=== PATIENT | female | born 1945 | race Caucasian/White ===

== ENCOUNTER → 2019-10-03 11:18 | Outpatient (CLI) | payer BC, SELFPAY ==
--- NOTE | ~2019-10-03 | MM_ITS ---
EXAMINATION: MM screening [facility] HISTORY: Screening mammogram TECHNIQUE: Craniocaudal and mediolateral oblique 3-D tomosynthesis images were obtained and synthetic 2-D images were generated. CAD analysis was submitted and interpreted. COMPARISON: Comparison to multiple prior studies sequentially, with oldest reviewed study dated 05/04. BREAST PARENCHYMAL COMPOSITION: There are scattered areas of fibroglandular density. FINDINGS: Left breast asymmetries are stable. There is no evidence of suspicious mass, calcification, or architectural distortion to suggest malignancy in either breast. There has been no suspicious int erval change. IMPRESSION: 1. No mammographic evidence of malignancy. 2. Recommend routine screening mammography in one year. BI-RADS CATEGORY 2 - BENIGN FINDINGS Reviewed, dictated and finalized at location A. DE SALES COORDINATOR
== END ==
PROVIDERS: PCP Physician Assistant; Visit Provider Advanced Practice Midwife
DX: Z12.31 Encounter for screening mammogram for malignant neoplasm of breast (principal)
CPT/HCPCS: 77063; 77067

== ENCOUNTER → 2019-10-18 11:10 | Outpatient (CLI) | payer BC, SELFPAY ==
--- NOTE | ~2019-10-18 | DEXA_ITS ---
Bone Density Report Name: Yessy Franco Age: 74 Sex: Female Ethnicity: White Date of : 1945 Indication: postmenopausal; screening for osteoporosis; hysterectomy; Referring Provider: SELENE, CAIT Study: Bone densitometry was performed. Exam Date: October 18, 2019 Accession number: [id number] Bone Density: Region BMD T-score Z-score Classification AP Spine (L1, L2, L3) 0.807 -1.9 0.4 Osteopenia Femoral Neck (Left) 0.550 -2.7 -0.6 Osteoporosis Total Hip (Left) 0.751 -1.6 0.2 Osteopenia Femoral Neck (Right) 0.543 -2.8 -0.7 Osteoporosis Total Hip (Right) 0.779 -1.3 0.4 Osteopenia Total Hip Mean 0.765 -1.5 0.3 Osteopenia World Health Organization criteria for BMD impression classify patients as: Normal (T-score at or above -1.0), Osteopenia (T-score between -1.0 and -2.5), or Osteoporosis (T-score at or below -2.5). 10-year Fracture Risk: FRAX not reported because: Some T-score for Spine Total or Hip Total or Femoral Neck at or below -2.5 Clinical Information Provided by Patient: Has used the following medications: Vitamin D Has the following medical conditions: Hysterectomy Patient maximum height was 62.0 Menopause Age: 51 Does not regularly consume dairy products Drinks caffeinated beverages Onset of menses at age 13 Number of children 0 Impression: The patient has osteoporosis, based on the Right Femoral Neck T-score. Discussion: INCREASED RISK OF FRACTURE. BONE DENSITY IS UNDESIRABLY LOW AT ONE OR MORE SKELETAL SITES, CONSISTENT WITH POSTMENOPAUSAL OSTEOPOROSIS. This patient's lowest T-score meets the World Health Organization's (WHO) criteria for osteoporosis at one or more sites (T-score -2.5 or below). In untreated patients, the risk of osteoporotic fracture increases approximately two-fold for each 1.0 SD decrease in T-score. Low bone density is not the only risk factor for fracture; also consider factors such as patient's age, frailty or poor health, risk of falling, risk of injury, previous osteoporotic fracture, family history of osteoporosis, cigarette smoking, low body weight, etc. Not everyone with low bone mineral density has osteoporosis; osteomalacia and other metabolic bone disorders should also be considered. Patients who have osteoporosis should be evaluated for specific diseases and conditions (secondary causes) that may cause or contribute to bone loss. The [place] Association of Clinical Endocrinologists (AACE) and National Osteoporosis Foundation (NOF) recommend pharmacologic intervention for all postmenopausal women whose T-score is in this range. The patient should follow a healthful lifestyle (good nutrition with adequate calcium and vitamin D, and appropriate weight-bearing exercise). Follow-Up: Consider a repeat BMD and Vertebral Fracture Assessment (VFA) exam in
== END ==
PROVIDERS: PCP Physician Assistant; Visit Provider Physician Assistant
DX: Z78.0 Asymptomatic menopausal state (principal); M85.88 Other specified disorders of bone density and structure, other site; M81.0 Age-related osteoporosis without current pathological fracture; M85.852 Other specified disorders of bone density and structure, left thigh; M85.851 Other specified disorders of bone density and structure, right thigh
CPT/HCPCS: 77080

== ENCOUNTER → 2021-01-25 11:33 | Outpatient (CLI) | payer BC, SELFPAY ==
--- NOTE | ~2021-01-25 | MM_ITS ---
EXAMINATION: MM screening [facility] w raul HISTORY: Screening mammogram TECHNIQUE: Craniocaudal and mediolateral oblique 3-D tomosynthesis images were obtained and synthetic 2-D images were generated. CAD analysis was submitted and interpreted. COMPARISON: 10/03/2019, 08/27/2018, 06/30/2017 BREAST PARENCHYMAL COMPOSITION: The breasts are heterogeneously dense, which may obscure small masses . FINDINGS: A chronic and unchanged asymmetry is noted in the upper left breast on the mediolateral obl ique view. There is no evidence of suspicious mass, calcification, or architectural distortion to sug gest malignancy in either breast. There has been no suspicious interval change. IMPRESSION: 1. No mammographic evidence of malignancy. 2. Recommend routine screening mammography in one year. BI-RADS Category 2: Benign finding(s). Reviewed, dictated and finalized at location A.
== END ==
PROVIDERS: PCP Physician Assistant; Visit Provider Physician Assistant
DX: Z12.31 Encounter for screening mammogram for malignant neoplasm of breast (principal)
CPT/HCPCS: 77063; 77067

== ENCOUNTER 2024-12-15 16:28 | Emergency (ER) | payer BC, SELFPAY ==
--- NOTE | ~2024-12-15 | CT_ITS ---
History: Fall PROCEDURE: CT cervical spine and facial bones without intravenous contrast. COMPARISON: None TECHNIQUE: Multiple contiguous axial images of the cervical spine and facial bones were performed without the ad ministration of intravenous contrast. DLP: 185 mGy-cm FINDINGS: Significant degenerative disease is identified with osteophyte formation, disc space narrowing, endpl ate changes and facet arthropathy. No acute fractures are present. Biapical scarring. Left frontal scalp hematoma The airway is patent. Impression: Left frontal scalp hematoma. No acute fracture within the cervical spine or facial bones. Reviewed, dictated and finalized at location A. Impression: Left frontal scalp hematoma. No acute fracture within the cervical spine or facial bones.
--- NOTE | ~2024-12-15 | XR_ITS ---
HISTORY: fall COMPARISON: None TECHNIQUE: 3 views of the right knee were performed FINDINGS: No acute or subacute fracture. Medial and lateral tibiofemoral joint space narrowing is identified. No suprapatellar joint effusion is identified. The infrapatellar joint space is clear. IMPRESSION: Degenerative disease, without acute fracture. Reviewed, dictated and finalized at location A.
--- NOTE | ~2024-12-15 | CT_ITS ---
History: Fall PROCEDURE: CT head without contrast. COMPARISON: None TECHNIQUE: Axial imaging of the head performed from the skull base to the vertex without IV contrast. Sagittal a nd coronal reformations obtained. DLP: 605 mGy-cm FINDINGS: The ventricles are enlarged. The dilatation of the ventricles is proportional to the degree of sulcal prominence, not uncommon in the senescent brain. Incidental notation is made of cavum septum pellucidum. Decreased attenuation is identified within the periventricular white matter, likely secondary to micr ovascular ischemic disease, in a patient of this age. There is no mass, mass effect or midline shift. There is no abnormal extra-axial fluid collection or intracranial hemorrhage. Visualized paranasal sinuses are clear. The mastoid air cells are well aerated. Left frontal scalp hematoma of increased attenuation. No acute displaced fractures within the overlying cranium. Impression: Left frontal scalp hematoma, without acute intracranial hemorrhage or suspicious mass effect. Reviewed, dictated and finalized at location A. Impression: Left frontal scalp hematoma, without acute intracranial hemorrhage or suspiciou s mass effect.
--- OUTSIDE RECORDS SUMMARY | 2024-12-15 16:30 | XMS_ITS | Clinical Summary ---
Author Organization [facility] Address [address] [place] [address] Care Team Providers Care Visual Design Lead Name Role Phone Unavailable Primary Care Provider Unavailabl e Source Comments [facility],non-owned Affiliates and Associated Physician Practices is amultiple site organization consisting of ambulatory clinics and hospital sitesin [place], [place], [place] and [place]. This disclosure is being madepursuant to the Care Everywhere program and may not contain all information available regarding this patient. Last updated 18.[facility] Allergies No known active allergies Medications * Be aware that medications may not be up to date on this document. Alwaysverify current medications with the patient. LISINOPRIL PO Take 12.5 mg by mouth Active fluticasone propionate (FLONASE) 50 MCG/ACT nasal spray [place] 2 sprays into each nostril once daily 48 g 4 10/04/2019 Active Social History Tobacco Use Types Packs/Day Years Used Date Smoking Tobacco: Never Smokeless Tobacco: Never Comments No Sex and Gender Information Value Date Recorded Sex Assigned at Not on file Legal Sex Female 5:48 AM [employer] Gender Identity Not on file Sexual Orientation Not on file Last Filed Vital Signs Vital Sign Reading Time Taken Comments Blood Pressure 124/80 10/04/2019 9:42 AM [employer] Pulse 72 10/04/2019 9:42 AM [employer] Temperature 36.7 C (98.1 F) 10/04/2019 9:42 AM [employer] Respiratory Rate 18 10/04/2019 9:42 AM [employer] Oxygen Saturation 98% 10/04/2019 9:42 AM [employer] Inhaled Oxygen Concentration - - Weight 51.7 kg (114 lb) 10/04/2019 9:42 AM [employer] Height 154.9 cm (5' 1 ) 10/04/2019 9:42 AM [employer] Body Mass Index 21.54 10/04/2019 9:42 AM [employer]ESSEL Plan of Treatment Health Maintenance Due Date Last Done Comments BONE DENSITY TESTING 1945 DTAP/TDAP/TD VACCINES (1 - Tdap) 1964 PNEUMOCOCCAL VACCINE 50+ (1 of 1 - PCV) 1995 ZOSTER VACCINE (1 of 2) 1995 Respiratory Syncytial Virus (RSV) Vaccine Pt: or over 60 yrs (1 - 1-dose 75+ series) 2020 COVID-19 VACCINE (1 - 2023-2 5 season) 2024 DEPRESSION SCREENING 08/10/2024 INFLUENZA VACCINE (Season Ended) 2025 HEPATITIS B VACCINE Aged Out No longe r eligible based on patient's age to complete this topic HIB VACCINE Aged Out No longer eligi ble based on patient's age to complete this topic HPV VACCINE Aged Out No longer eligi ble based on patient's age to complete this topic MENINGOCOCCAL (Group B) VACC INE SHARED DECISION-MAKING Aged Out No longer eligibl e based on patient's age to complete this topic MENINGOCOCCAL GROUPS A/C/Y/W VACCINE Aged Out No longer eligible b ased on patient's age to complete [place] [address] FAVIOLA
--- OUTSIDE RECORDS SUMMARY | 2024-12-15 16:30 | XMS_ITS | Data Portability ---
Author Organization [facility], Main Office Address [address] [place] [address] Care Team Providers Care Prepared Foods Supervisor Name Role Phone JOSE LEWIS Primary Care Provider JOSE LEWIS Referring Provider Assessment Encounter Date Assessment Date Assessment LastModified by Organization Details LastModified Time 03/16/2023 03/16/2023 Patient presents finger for rain left. She fractured the proximal part of the distal phalanx of the left 5th finger. This is deteriorating become somewhat arthritic already and she is prominent there. She can move it finger is stable neurologically she is intact. Based on this and the timing I think there is really not much else to do. If he gets very painful so we could consider fusing it however for the present time it is tolerable and recommend leaving it alone. See her back on an as-needed basis discussed. [email or web address] Not available 03/16/2023 11:27:41 03/24/2023 03/24/2023 Patient has ankl e pain left. She does have some degenerative changes noted on her x-ray. The pain is not bad today and she can tolerate it. I told her it is probably best just to live with it the way it is. I have given her prednisone for prescription drug management, for pain and inflammation. For will try some therapy as well I will see her back in a month discussed. [email or web address] Not available 03/24/2023 14:30:36 04/20/2023 04/20/2023 Patient returns ankle pain left. The ankle pain is resolving with therapy and she is seeming the headed in the right direction. She is having issues with walking and her balance. I think continuation of therapy would be helpful for I will see her back in 6 weeks and see how she is progressing. She can use her ankle as tolerated if it is sore she can take some Advil or Aleve. [email or web address] Not available 04/20/2023 10:21:21 06/01/2023 06/01/2023 Patient has mostly resolved left ankle pain I have advised her to continue with her physical therapy exercises as previously instructed by the therapist. She will continue with these for strengthening range of motion and pain control we will see her back as needed she can start getting back into normal activities if she wants to try a ballroom dancing with her they can start off slow see how she does if they have any further problems difficulties or questions they instructed to call I will see her back as needed she voiced understanding agrees above plan. [email or web address] Not available 06/01/2023 10:20:29 Plan of Treatment Reminders Order Date Submit Date Provider Last Modified By Organization Details Last Modified Time Details Appointments None recorded. Lab None recorded. Referral physical therapist referral - continue 2022 023 ATHENAX [facility] [place] [facility], [address], [place], [address], 10:25:26 physical therapist referral - patient to schedule 2022 023 [email or web address] [facility] [place] [facility], [address], [place], [address], 15:34:24 Procedures None recorded. Surgeries None recorded. Imaging XR, ankle 2022 023 [email or web address] [facility] [place], [address], [place], [address], 3 15:34:24 XR, hand 2022 023 [email or web address] [facility] [place], [address], [place], [address], 3 12:13:45 Medication Orders prednisone 10 mg tablets in a dose pack 2022 023 [email or web address] [id number], [address], [place], [place], [phone], 3 14:17:08 Patient TargetsNo targets recorded. Patient InstructionsNo instructions recorded. Reason for Referral Physical Therapist Referral for Pain of left ankle joint patient to schedule Referring Physician: Cody Ho, Orthopedic Surgery, Encounter Date: 03/24/2023 Physical Therapist Referral for Pain of left ankle joint continue ambulation and balance Referring Physician: Cody Ho, Orthopedic Surgery, Encounter Date: 04/20/2023 Results Created Date Observation Date Name Description Value Unit Range Abnormal Flag Note LastModifiedBy Organization Detail LastModifiedTime 07/22/20 22 XR, hip + pelvi s, unila teral No observ ation record ed. [id number] [facility] [place] [address], [place], [address], 10/09/2022 01:48:47 03/16/20 23 XR, hand No observ ation record ed. [email or web address] [facility] [place] [address], [place], [address], 03/16/2023 11:28:03 03/24/20 23 XR, ankle No observ ation record ed. [facility] [place] [address], [place], [address], 03/24/2023 14:31:04 Result Notes None recorded. 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 Procedures Surgical History Date Name Laterality Status Provider Name and Address Organization Details Recorded Time Hysterectomy completed Not Available [facility] 10/09/2022 01:47:34 Imaging Results Imaging Date Name Status LastModified by Organiz ation Details LastModified Time 07/22/2022 XR, hip + pelvis, unilateral completed [id number] [facility] [place] [address] [facility], [place], [address], 10/09/2022 01:48:47 03/16/2023 XR, hand completed [email or web address] [facility] [place] [address], [address], 03/16/2023 11:28:03 03/24/2023 XR, ankle completed [email or web address] [facility] [place] [address], [address], 03/24/2023 14:31:04 Procedure Notes None recorded. Medical Equipment None Reported. Medications Name Sig Start Date Stop Date Status Note LastModified by Organization Details LastModified Time amoxicillin 500 mg capsule TAKE 1 CAPSULE BY MOUTH EVERY 8 HOURS UNTIL ALL TAKEN active Not Available Not Available No t Available atorvastatin 20 mg tablet TAKE 1 TABLET BY MOUTH EVERY EVENING active Not Available Not Available No t Available donepezil 5 mg tablet active Not Available Not Available No t Available triazolam 0.25 mg tablet TAKE 1 TABLET BY MOUTH AT BEDTIME THE NIGHT BEFORE DENTAL PROCEDURE. TAKE 1 TABLET BY MOUTH 1 HOUR PRIOR TO DENTAL APPOINTMENT active Not Available Not Available Not Available azithromycin 250 mg tablet TAKE 2 TABLETS BY MOUTH FOR 1 DAY THEN TAKE 1 TABLET BY MOUTH DAILY FOR 4 DAYS active Not Available Not Available N ot Available acetaminophe n 300 mg-codeine 30 mg tablet TAKE 1 TABLET BY MOUTH EVERY 3 TO 4 HOURS NEEDED FOR PAIN active Not Available Not Available No t Available aspirin 81 mg tablet,delay ed release TAKE 1 TABLET BY MOUTH ONCE A DAY active Not Available Not Available No t Available prednisone 10 mg tablets in a dose pack Take 1 tab by mouth, 3 times a day for 3 daysTake 1 tab by mouth 2 times a day for 2 daysTake 1 tab by mouth once a day for 1 day 2022 active Not Available Not Available Not Avai lable diclofenac sodium 75 mg tablet,delay ed release Take 1 tablet twice a day by oral route. active Not Available Not Available No t Available montelukast 10 mg tablet active Not Available Not Available Not Available metoprolol succinate ER 25 mg tablet,exten ded release 24 hr TAKE 1 TABLET BY MOUTH EVERY DAY active Not Available Not Available No t Available azelastine 137 mcg (0.1 %) nasal spray USE 1 SPRAY IN EACH NOSTRIL TWICE DAILY DIRECTED active Not Available Not Available Not Available fluticasone propionate 50 mcg/actuatio n nasal spray,suspen rodger SHAKE LIQUID AND USE 2 SPRAYS IN EACH NOSTRIL DAILY active Not Available Not Available No t Available olmesartan 40 mg-hydrochlo rothiazide 12.5 mg tablet TAKE 1 TABLET BY MOUTH DAILY active Not Available Not Available Not Available duloxetine 60 mg capsule,kb yed release active Not Available Not Available Not Available rivastigmine 4.6 mg/24 hour transdermal patch APPLY 1 PATCH TOPICALLY TO THE SKIN DAILY active Not Available Not Available No t Available Paxlovid 300 mg (150 mg x 2)-100 mg tablets in a dose pack TK 2 NIRMATRELVI R TS AND 1 RITONAVIR T TOGETHER PO BID FOR 5 DAYS BID FOR 5 DAYS active Not Available Not Available N ot Available Vitals Date Recorded Body mass index (BMI) Body height Body weight Provider Name and Address Organization Details Last Updated DateTime 07/22/2022 17.4 kg/m2 180.34 cm 09464.05 g Not Available [facility] 10/09/2022 01:47:43 Date Recorded Body height Body mass index (BMI) Body weight Provider Name and Address Organization Details Last Updated DateTime 03/16/2023 154.94 cm 27.4 kg/m2 63393.89 g Cecy Brooks [facility] [employer] [facility] 03/16/2023 09:22:16 Date Recorded Body height Body mass index (BMI) Body weight Provider Name and Address Organization Details Last Updated DateTime 03/24/2023 154.94 cm 26.5 kg/m2 36351.93 g [facility] [employer] [facility] 03/24/2023 13:54:19 Date Recorded Body height Body mass index (BMI) Body weight Provider Name and Address Organization Details Last Updated DateTime 04/20/2023 154.94 cm 27 kg/m2 37883.71 g Sandie Arteaga, [facility] [employer] [facility] 04/20/2023 10:11:51 Date Recorded Body height Body mass index (BMI) Body weight Provider Name and Address Organization Details Last Updated DateTime 06/01/2023 154.94 cm 27.4 kg/m2 12327.89 g Esther Appiah [facility] [employer] [facility] 06/01/2023 10:03:09 Social History Question Answer Notes LastModified by Organizat ion Details LastModified Time Tobacco Smoking Status Never Smoker Not Available [facility] 10/09/2022 01:47:15 What Is Your Level Of Alcohol Consumption? Occasional [id number] Information not available 10/09/2022 Sex: Unknown Functional Status None recorded. Mental Status None recorded. Family History Relationship Description Onset Age of this Age Resolved Age Notes LastModified by Organization Details LastModified Time Mother Heart disease [id number] Not available 10/09/2022 01:47:35 Brother Heart disease [id number] Not available 10/09/2022 01:47:35 Father Alzheimer's disease [id number] Not available 10/09/2022 01:47:35 Medical History Condition Response USE OF BLOOD THINNERS Y HYPERTENSION Y Gynecological HistoryNo gynecological history recorded. Obstetrics History GPAL:G 0 P 0 0 0 0 Past Encounters Encounter ID Performer Location Encounter Start Date Encounter Closed Date Diagnosis/Indication Diagnosis SNOMED-CT Code Diagnosis ICD10 Code Diagnosis Note [id number] Cody Ho MD [facility] [place] [address] [place] [address] 07/22/2022 00:00:00 07/22/2022 15:01:37 [id number] Cody Ho MD [facility] [place] 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 [place] [address] 03/24/2023 13:51:43 03/24/2023 15:34:23 Pain of left ankle joint 1249203341 8611032 M25.000 [id number] Cody Ho MD [facility] [place] [address] [place] [address] 04/20/2023 10:09:18 04/20/2023 10:22:39 Pain of left ankle joint 7802604316 3532585 M25.911 [id number] Harshal Chirinos MD [facility] [place] [address] [place] [address] 06/01/2023 10:00:13 06/01/2023 10:42:20 Pain of left ankle joint 6187550527 9622182 M25.572 Health Concerns Section Related Observation LastModified by Organization Detai ls LastModified Time None Recorded Concern Status LastModified by Organization Details LastModified Time None Recorded Advance Directives Directive None Recorded Payers Encounter Date Sequence Insurance Name Policy Number Policy Sotelo Covered Member ID Sotelo Member ID Guarantor Name 03/16/2023 1 [employer] 104 Yessy Franco [id number] Yessy Franco 03/24/2023 1 [place] 104 Yessy Franco [id number] Yessy Franco 04/20/2023 1 [place] 104 Yessy Franco [id number] Yessy Franco 06/01/2023 1 [facility] FED[employer] [facility] PROGRAM (PPO) 104 Yessy Franco [id number] Yessy Franco Notes Date Note Type Note Provider Name and Address Organization Details Recorded Time 03/16/2023 text/html Patient presents finger pain left 5th. Apparently she damaged her fingers 6-8 weeks ago and notes swelling and pain she has been complaining about more over the last several weeks. The deformities at the D IP joint. Cody Ho MD [address], [place], [address], [employer] 03/16/2023 11:29:10 03/24/2023 text/html Patient returns ankle pain left. She has pain left ankle it is intermittent. It is not bad today she has excellent motion and strength she does have some mild pain at the extremes. Cody Ho MD [address], [place], [address], [facility] 03/24/2023 14:32:04 04/20/2023 text/html Patient returns ankle pain left. She has been in therapy and is slowly but surely improving. The pain is to a point where it is reasonably tolerable she is more active with her ankle at this point. Unfortunately she continues to have problems with balance and walking. Cody Ho MD [address], [place], [address], [facility] 04/20/2023 10:21:34 06/01/2023 text/html Patient returns for recheck of her left ankle. She was having some pain particularly if she is overdoing it she and her have been doing some ballroom dancing and this was aggravating her ankle somewhat. She states she has remote history of ankle injury but nothing recently. Previous x-rays do show some moderate degenerative change and what appears to be resulting hypertrophic changes due to high ankle sprain with bridging hypertrophic bone across the tibia to the fibula interosseous membrane region distally. In any event most of her pain was localized to the ankle joint itself she was treated with oral anti-inflammatory medication and a course of physical therapy. Therapy seems to be helping quite a bit she states her pain is now about a 1 on a scale 1-10 she has pretty good motion a little stiffness compared to the opposite side chronic in nature but otherwise doing well comes in today for recheck and talk about further treatment options from here. KG Kim [address] [facility], [facility] [address], [place], [address], [facility] 06/01/2023 10:20:53 OBGyn Episode No OBEpisode recorded.
--- OUTSIDE RECORDS SUMMARY | 2024-12-15 16:30 | XMS_ITS | CONTINUITY OF CARE DOCUMENT ---
Author Name caitie blood Address Unknown Organization [facility] Address [address] [place] [address] Phone [phone] Care Team Providers Care Top Case Assembler Name Role Phone Marcelino HORTA, Naina Unavailable JOSE LEWIS MD Unavailable [phone] JOSE LEWIS MD Unavailable PROBLEMS Condition Status Date Provider Notes Aortic regurgitation, moderate active Charlotte Benson MD Mitral regurgitation, mild active Naina schaefer MD HTN essential--echo ef 70%, mod AI, mild MR, 05/2021 active Naina Benson MD Abnormal EKG--stress test no rmal, calcium score 241, 05/2021 active Naina Benson MD Chest pain active Ike Guzmán PACs active Naina Benson MD PSVT active Naina Benson MD Alzheimer's dementia active Naina Benson MD Sleep apnea, not using cpap active Ike macias ENCOUNTERS Date Type Provider Location Encounter Diag nosis - In-person encounter Office Visit Naina Benson MD [facility] Sleep apnea, not using cpap - In-person encounter Office Visit Naina Benson MD [facility] Alzheimer's dementia - In-person encounter Office Visit Naina Benson MD [facility] PACsPSVT - In-person encounter Office Visit Naina Benson MD [facility] Chest pain - In-person encounter Office Visit Naina Benson MD [facility] - In-person encounter Office Visit Nania Benson MD [facility] HTN essential--echo ef 70%, mod AI, mild MR, bnormal EKG--stress test normal, calcium score 241, 05/2021 - In-person encounter Office Visit Naina Benson MD [facility] Chest pain - In-person encounter Office Visit Naina Benson MD [facility] - In-person encounter Office Visit Naina Benson MD [facility] Aortic regurgitation, moderateMitral regurgitation, mildHTN essential--echo ef 70%, mod AI, mild MR, bnormal EKG--stress test normal, calcium score 241, 05/2021 VITAL SIGNS Date Observation Value Provider Body Mass Index (Ratio) 26.88 kg/m2 Osvaldo Benson MD pulse rate 89 /min Chelseachucho Llamas blood pressure, cuff size regular Scooby reneeолег Llamas blood pressure, diastolic 64 mm[Hg] Scooby reneeолег Llamas blood pressure, systolic 104 mm[Hg] [facility] oxygen saturation, oximetry 94 % [place]o Llamas weight E&M 147 [lb_av] Chelsea Llamas respiratory rate E&M 12 /min [place] Llamas height E&M 62 [in_i] Chelsea Llamas Body Mass Index (Ratio) 26.15 kg/m2 Osvaldo Benson MD blood pressure, diastolic 77 mm[Hg] Li nkLogic blood pressure, systolic 138 mm[Hg] Radha kLogic blood pressure, cuff size regular Ja rret blood pressure, diastolic 77 mm[Hg] Ja rret blood pressure, systolic 138 mm[Hg] Jar ret pulse rate 70 /min Amado y respiratory rate E&M 12 /min Amado oxygen saturation, oximetry 95 % weight E&M 143 [lb_av] Amado y height E&M 62 [in_i] Amado y Body Mass Index (Ratio) 21.40 kg/m2 Osvaldo Benson MD blood pressure, diastolic 90 mm[Hg] Liliam tejeda [place] blood pressure, systolic 160 mm[Hg] Sriram augustine [place] oxygen saturation, oximetry 98 % Flaca Childs respiratory rate E&M 16 /min Yoanna morocho [place] pulse rate 77 /min Flaca lawrence weight E&M 117 [lb_av] Flaca lawrence height E&M 62 [in_i] Flaca lawrence Body Mass Index (Ratio) 21.21 kg/m2 Osvaldo Benson MD blood pressure, diastolic 90 mm[Hg] Li nkLogic blood pressure, systolic 150 mm[Hg] Radha kLogic blood pressure, diastolic 90 mm[Hg] Ri az Olemedzai blood pressure, systolic 150 mm[Hg] Nidia z Ahmedzai respiratory rate E&M 17 /min Tegan Si ms oxygen saturation, oximetry 97 % Tegan Sheridan pulse rate 66 /min Tegan Sheridan weight E&M 116 [lb_av] Tegan Sheridan blood pressure, cuff size regular Sa ra Sheridan height E&M 62 [in_i] Tegan Sheridan Body Mass Index (Ratio) 21.58 kg/m2 Osvaldo Benson MD blood pressure, cuff size small Liliam tejeda [place] blood pressure, diastolic 80 mm[Hg] Mi nkihil [place] blood pressure, systolic 150 mm[Hg] Sriram augustine [place] oxygen saturation, oximetry 98 % Flaca [place] respiratory rate E&M 16 /min Yoanna morocho [place] pulse rate 84 /min Flaca Rolando lawrence weight E&M 118 [lb_av] Flaca Rolando d height E&M 62 [in_i] Flaca Rolando d Body Mass Index (Ratio) 20.67 kg/m2 Osvaldo Benson MD blood pressure, diastolic 80 mm[Hg] Li nkLogic blood pressure, systolic 170 mm[Hg] Radha kLogic blood pressure, diastolic 80 mm[Hg] Darnell Childers blood pressure, systolic 170 mm[Hg] Portia Muiramirah Childers oxygen saturation, oximetry 98 % Newton Childers respiratory rate E&M 16 /min JanayLizy Childers pulse rate 77 /min Newton Rangel cb weight E&M 113 [lb_av] Newton Multani [facility] height E&M 62 [in_i] Newton Multani [facility] Body Mass Index (Ratio) 20.12 kg/m2 Osvaldo Benson MD blood pressure, diastolic 99 mm[Hg] To nsha Junior blood pressure, systolic 180 mm[Hg] Ton kia Junior oxygen saturation, oximetry 98 % Tonsha Junior respiratory rate E&M 16 /min Tonsha Junior pulse rate 82 /min Tonsha Junior weight E&M 110 [lb_av] [facility] blood pressure, resting Yes [facility]issa [facility] height E&M 62 [in_i] [facility] Body Mass Index (Ratio) 21.21 kg/m2 Osvaldo Benson MD blood pressure, cuff size regular Cy lucy Leone blood pressure, diastolic 70 mm[Hg] Jesús Leone blood pressure, systolic 130 mm[Hg] Gayathri Leone pulse rate 65 /min Yvette damon oxygen saturation, oximetry 97 % Yvette Leone respiratory rate E&M 16 /min Yvette Leone height E&M 62 [in_i] Yvette Sanchez l weight E&M 116 [lb_av] Yvette Sanchez l ALLERGIES No Known Drug Allergies HISTORY OF MEDICATION USE Medication Status Instructions Dates Provider Indications Com ments amlodipine 5 mg tablet active Chelsea Llamas metoprolol succinate 25 mg tablet extended release 24 hr active TAKE 1 TABLET BY MOUTH EVERY DAY 4 Yaima Melendez metoprolol succinate 25 mg tablet extended release 24 hr completed Take 1 tablet by mouth once a day 2 - 4 Amado atorvastatin 20 mg tablet active Take 1 tablet by mouth every evening 9 Ike Guzmán aspirin 81 mg tablet,delayed release (DR/EC) active Take 1 tablet by mouth once a day 9 Ike Guzmán olmesartan-hydro chlorothiazide 20-12.5 mg tablet completed Take 1 tablet by mouth once a day 2 - 2 Naina Benson MD duloxetine 60 mg capsule,delayed release(DR/EC) active Newton Childers fluticasone propionate 50 mcg/actuation spray,suspension active Newton Childers montelukast 10 mg tablet completed - 2 Newton Childers lisinopril-hydro chlorothiazide 20-12.5 mg tablet completed Take 1 tablet by mouth once a day 0 - 2 Yvette Leone SOCIAL HISTORY Date Observation Value Provider smoking status Never smoker Ike Guzmán social history reviewed E&M revi ewed - no changes required Naina Benson MD social history E&M S moking History: Joseph carvajal has never smoked. Ike Guzmán smoking status Never smoker Flaca Tay and social history reviewed E&M revi ewed - no changes required Naina Benson MD social history reviewed E&M revi ewed - no changes required Ike Guzmán social history reviewed E&M revi ewed - no changes required Naina Benson MD smoking status Never smoker Flaca Tay and social history reviewed E&M revi ewed - no changes required Ike Guzmán social history E&M S moking History: Joseph carvajal has never smoked. Naina Benson MD social history reviewed E&M revi ewed - no changes required Naina Benson MD smoking status Never smoker Newton Roe thornton social history E&M S moking History: Joseph carvajal has never smoked. Natan Vizcaino social history reviewed E&M revi ewed - no changes required Natan Vizcaino smoking status Never smoker Sara Junior number of grandchildren Naina Benson MD T jeff Benson MD social history E&M S moking History: Jospeh carvajal has never smoked. Naina Benson MD social history reviewed E&M revi ewed - no changes required Naina Benson MD smoking status Never smoker Yvette shipley FAMILY HISTORY Family Member Condition Full Brother Family History of CV A or Stroke: Father Family History of CV A or Stroke: Mother Family History of Co ronary Artery Disease: Mother Family History of CV A or Stroke: INSURANCE PROVIDERS Payer name Policy type / Coverage type [place] red green party ID BLUE SHIELD OF [place] Blue Shield [id number] ADVANCE DIRECTIVES Name Date DISCUSSED - NO DECISION MADE TREATMENT PLAN Date Name Performer [id number],S, Naina Benson MD [id number],S, Naina Benson MD [id number],B, Naina Benson MD [id number],S, Naina Benson MD [id number],S, Naina Benson MD [id number],S, Ike Ahmedza i [id number],S, Ike Ahmedza i [id number],S, Ike Ahmedza i [id number],B, Ike Ahmedza i [id number],B, Ike Ahmedza i [id number],S, Ike Ahmedza i [id number],S, Ike Ahmedza i [id number],S, Ike Ahmedza i [id number],S, Ike Ahmedza i [id number],B, Ike Ahmedza i [id number],S, Ike Ahmedza i [id number],S, Ike Ahmedza i [id number],S, Ike Ahmedza i [id number],S, Ike Ahmedza i [id number],S, Ike Ahmedza i [id number],S, Ike Ahmedza i [id number],S, Ike norma german [id number],S, [facility]ons[facility]at [id number],S, Naina Benson MD [id number],S, Naina Benson MD [id number],S, Naina Benson MD [id number],W, Naina Benson MD [id number],W, Naina Benson MD Cardiology Ikereji Guzmán Cardiology: H er updated medication list for this problem includes: Amlodipine 5 Mg Tablet (Amlodipine) Metoprolol Succinate 25 Mg Tablet Extended Release 24 Hr (Metoprolol succinate) ..... Take 1 tablet by mouth every day Aspirin 81 Mg Tablet,delayed Release (dr/ec) (Aspirin) ..... Take 1 tablet by mouth once a day Ike lluvia [facility]iology [facility] Ike norma [facility] Cardiology: H er updated medication list for this problem includes: Amlodipine 5 Mg Tablet (Amlodipine) Metoprolol Succinate 25 Mg Tablet Extended Release 24 Hr (Metoprolol succinate) ..... Take 1 tablet by mouth every day Aspirin 81 Mg Tablet,delayed Release (dr/ec) (Aspirin) ..... Take 1 tablet by mouth once a day Ike norma Cardiology: H er updated medication list for this problem includes: Amlodipine 5 Mg Tablet (Amlodipine) Metoprolol Succinate 25 Mg Tablet Extended Release 24 Hr (Metoprolol succinate) ..... Take 1 tablet by mouth every day Aspirin 81 Mg Tablet,delayed Release (dr/ec) (Aspirin) ..... Take 1 tablet by mouth once a day BP today: 104/64 P rior BP: 138/77 (04/20/2023) Ike Guzmán Cardiology Naina Benson MD Cardiology Naina Benson MD Cardiology Naina Benson MD Cardiology Naina Benson MD Cardiology Naina Benson MD Telehealth Ike Ahmedzai Telehealth Ike Ahmedzai Telehealth Ike Ahmedzai Telehealth Ike Ahmedzai Cardiology Ike Ahmedzai Cardiology Ike Ahmedzai Cardiology Ike Ahmedzai Cardiology Ike Ahmedzai Cardiology Ike Ahmedzai Cardiology Ike Ahmedzai Cardiology Ike Ahmedzai Cardiology Ike Ahmedzai Cardiology Ike Ahmedzai Cardiology Ike Ahmedzai Cardiology Ike Ahmedzai Cardiology Ike Ahmedzai Cardiology Ike Ahmedzai Cardiology Ike Ahmedzai Cardiology RS Naina Benson MD Cardiology RS Naina Benson MD Cardiology RS Naina Benson MD Cardiology RS Naina Benson MD Cardiology RS Naina Benson MD Cardiology Naina Benson MD Cardiology Naina Benson MD Cardiology:Patient s tates that elevated blood pressure is related to her rushing to the office today. She states that she has not had any sx of palpitations, SOB, or dizziness. Advised the patient to remain complaint with medications and to take her BP at home. B P today: 180/99 P rior BP: 130/70 (09/19/2019) Natan Vizcaino Cardiology:Seen on echo on 09/26 Natan Vizcaino Cardiology New Patient Naina schaefer MD Cardiology New Patient Naina schaefer MD Cardiology New Patient Naina schaefer MD Date Name Holter Monitor [address], Coronary Calcium Score Complete Echo Stress Exercise Card iolite Complete Echo HISTORY OF PROCEDURES Procedure Date Procedure Name Provider Procedure Notes S tatus EKG Naina Benson MD completed EKG Naina Benson MD completed CT- Coronary CA score Naina Benson MD completed EKG Naina Benson MD completed EKG Naina Benson MD completed
[2024-12-15 16:46] VITALS: BP 151/72; PULSE 67; RESP 18; TEMP 36.6; O2SAT 100
--- NOTE | 2024-12-15 17:36 | ED_ITS ---
HPI - Fall General Chief Complaint: Fall Stated Complaint: fall Time Seen by Provider: 12/15/24 16:49 History of Present Illness HPI Narrative: 79-year-old female with history of hypertension Alzheimer's dementia presenting to the emergency department after mechanical trip and fall outside. Patient was walking in normally ambulating when she tripped on a sidewalk and fell face 1st. She line on the left side of her face and sustained a small hematoma around her left eye and abrasions to left side of her face. She also did scrape of the right side of her knee. She was able to get up with EMS assistance and ambulate on scene. Did not lose consciousness does not take any blood thinner medications. Her family member and at bedside corroborated the story. Patient self is at her baseline mentation, not any acute distress, did not take anything for pain prior to arrival and states that she is comfortable at this time. She does have obvious abrasions to left side of face and right knee. No mobility deficits, no neck pain. She was otherwise in her normal state of health. Related Data Allergies Allergy/AdvReac Type Severity Reaction Status Date / Time No Known Allergies Allergy Verified 08/31/19 15:05 Review of Systems Review of Systems: As reviewed above in HPI [facility] Past Medical History Medical History Healthy adult Surgical History Surgical History No pertinent past surgical history Social History Social History Smoking status: Never smoker Exam Narrative: GENERAL: [Well-appearing, well-nourished, and in no acute distress.] HEAD: Left frontal scalp hematoma, normocephalic otherwise, left-sided frontal scalp abrasions EYES: Left-sided periorbital ecchymoses infraorbital, no crepitus, no tenderness to palpation ENT: Nares clear, no rhinorrhea or epistaxis. Mucous membranes moist. NECK: Supple. CHEST: [Clear to auscultation. No respiratory distress.] HEART: [Regular rate and rhythm]. No murmur heard. [Normal peripheral pulses.] ABDOMEN: [Soft, nondistended], [nontender], [No rigidity or guarding] EXTREMITIES: Normal range of motion. [No edema.] Superficial abrasion to the right knee cap, full range of motion with flexion extension of the knee and hip. Able to ambulate unassisted. SKIN: Warm, dry, no rash. NEURO: [No focal deficits]. Alert and oriented [x3.] PSYCH: [Normal mood and affect.] Course Vital Signs Vital signs: Vital Signs Temperature 36.6 C 12/15/24 16:46 Pulse Rate 67 12/15/24 16:46 Respiratory Rate 18 12/15/24 16:46 Blood Pressure 151/72 H 12/15/24 16:46 Pulse Oximetry 100 12/15/24 16:46 Temperature 36.6 C 12/15/24 18:51 Pulse Rate 61 12/15/24 18:51 Respiratory Rate 16 12/15/24 18:51 Blood Pressure 175/77 H 12/15/24 18:51 Pulse Oximetry 98 12/15/24 18:51 MDM - Fall MDM Narrative Medical decision making narrative: 79-year-old female with history of hypertension dementia presenting to the emergency department after mechanical slip and fall. She fell onto left side of the sidewalk and scraped up the left side of her face. She has left-sided periorbital hematoma, left-sided infraorbital hematoma, left-sided frontal scalp hematoma. Overlying skin abrasion but no laceration or active bleeding. Right- sided abrasion to the anterior knee but no dislocation or deformity. Full range of motion and ambulatory. Normal pulses, normal neurological assessment. Patient is at her baseline mentation without any nauseousness or headache. Given her age and risk factors a CT of the head, maxillary facial structures and cervical spine were obtained to rule out any kind of traumatic injuries. X-rays of the right knee were also obtained. Patient is comfortable at this time and did not require any analgesia. CTs and x-rays were independently reviewed and shows no osseous abnormalities, left frontal scalp hematoma is noted but no intracranial hemorrhage or fracture. No cervical spine anomalies. X-ray of the right knee without concern. Patient is ambulatory and able to be discharged home at this time. Family at bedside comfortable with her plan being discharged. Medical Records Attestation: I reviewed the patient's medical records. Imaging Data Attestation: I personally reviewed and interpreted this imaging study as follows: My impression: Impressions Head CT 12/15/24 18:10 Impression: Left frontal scalp hematoma, without acute intracranial hemorrhage or suspicious mass effect. Head/Cervical Spine/Facial Bones CT 12/15/24 18:17 Impression: Left frontal scalp hematoma. No acute fracture within the cervical spine or facial bones. Knee X-Ray 12/15/24 18:21 IMPRESSION: Degenerative disease, without acute fracture. Discharge Plan Discharge Clinical Impression: CHI (closed head injury), Hematoma of frontal scalp, Abrasion head, Abrasion of knee Patient Disposition: Home Condition: Stable Instructions: Antibiotic Form, Head Injury (ED), Abrasion (ED) Additional Instructions: No broken bones or any active bleeding, this superficial abrasions on your head and knee will heal with time, keep them covered with bandages and apply either Vaseline or Neosporin. Take Tylenol and ibuprofen for any aches or pains. Follow-up with your doctor. Return with any emergent concerns. Patient Language: Chinese Prescriptions: No Action lisinopril-hydrochlorothiazide [Zestoretic] 20-12.5 mg tablet 1 tablet PO DAILY Qty: 30 0RF Follow-up/Referrals: William,GK Martinez [Primary Care Provider] - Time of Disposition: 19:29
[2024-12-15] MEDS: TETANUS,DIPHTHERIA,AC PERTUSSIS ADULT (0.5 ML) BOOSTRIX IM (17:54)
--- OUTSIDE RECORDS SUMMARY | 2024-12-15 18:29 | XMS_ITS | CONTINUITY OF CARE DOCUMENT ---
Author Name caitie blood Address Unknown Organization [facility] Address [address] [place] [address] Phone [phone] Care Team Providers Care International Logistics Manager Name Role Phone Marcelino HORTA, Naina Unavailable JOSE LEWIS MD Unavailable JOSE LEWIS MD Unavailable PROBLEMS Condition Status [...] In-person encounter Office Visit Naina Benson MD [facility] Sleep apnea, not using cpap - In-person encounter Office Visit Naina Benson MD [facility] Alzheimer's dementia - In-person encounter Office Visit Naina Benson MD [facility] PACsPSVT - In-person encounter Office Visit Naina Benson MD [facility] Chest pain - In-person encounter Office Visit Naina Benson MD [facility] - In-person encounter Office Visit Naina Benson MD [facility] HTN essential--echo ef 70%, mod AI, mild MR, bnormal EKG--stress test normal, calcium score 241, 05/2021 - In-person encounter Office Visit Naina Benson MD [facility] Chest pain - In-person encounter Office Visit Naina Benson MD [facility] - In-person encounter Office Visit Naina Benson MD [facility] Aortic regurgitation, moderateMitral regurgitation, mildHTN essential--echo ef 70%, mod AI, mild MR, bnormal EKG--stress test normal, calcium score 241, 05/2021 VITAL SIGNS Date Observation Value Provider Body Mass Index (Ratio) 26.88 kg/m2 Osvaldo Benson MD pulse rate 89 /min Chelseachucho Llamas blood pressure, cuff size regular Scooby reneeолег Llaams blood pressure, diastolic 64 mm[Hg] Scooby reneeолег Llamas blood pressure, systolic 104 mm[Hg] [facility] oxygen saturation, oximetry 94 % Chelse[place]ucho [...] blood pressure, diastolic 90 mm[Hg] Liliam tejeda [place] blood pressure, systolic 160 mm[Hg] Sriram augustine [place] oxygen saturation, oximetry 98 % Flaca Childs respiratory rate E&M 16 /min Yoanna morocho [place] pulse rate 77 /min Flaca lawrence weight [...] blood pressure, cuff size small Liliam tejeda [place] blood pressure, diastolic 80 mm[Hg] Mi nikhil [place] blood pressure, systolic 150 mm[Hg] Sriram augustine [place] oxygen saturation, oximetry 98 % Flaca [place] respiratory rate E&M 16 /min Yoanna morocho [place] pulse rate 84 /min Flaca Rolando lawrence [...] cb weight E&M 113 [lb_av] Newton Multani [facility] height E&M 62 [in_i] Newton Multani [facility] Body Mass Index (Ratio) 20.12 kg/m2 Osvaldo Benson MD blood pressure, diastolic 99 mm[Hg] To nsha Junior blood pressure, systolic 180 mm[Hg] Ton kia Junior oxygen saturation, oximetry 98 % Tonsha Junior respiratory rate E&M 16 /min Tonsha Junior pulse rate 82 /min Tonsha Junior weight E&M 110 [lb_av] [facility] blood pressure, resting Yes [facility] height E&M 62 [in_i] [facility] Body Mass Index (Ratio) 21.21 kg/m2 Osvaldo [...] Payer name Policy type / Coverage type [place] red democrat ID BLUE SHIELD OF [place] Blue Shield [id number] ADVANCE DIRECTIVES Name Date DISCUSSED - NO DECISION MADE TREATMENT PLAN Date Name Performer [id number],S, Naina Benson MD [id number],S, Naina Benson MD [id number],B, Naina Benson MD [id number],S, Naina Benson MD [id number],S, Naina Benson MD [id number],S, Ike Ahmedza i [id number],S, Ike Ahmedza i [id number],S, Ike Ahmedza i [id number],B, Ike Ahmedza i [id number],B, Ike Ahmedza i [id number],S, Ike Ahmedza i [id number],S, Ike Ahmedza i [id number],S, Ike Ahmedza i [id number],S, Ike Ahmedza i [id number],B, Ike Ahmedza i [id number],S, Ike Ahmedza i [id number],S, Ike Ahmedza i [id number],S, Ike Ahmedza i [id number],S, Ike Ahmedza i [id number],S, Ike Ahmedza i [id number],S, Ike Ahmedza i [id number],S, Ike norma german [id number],S, [facility] [id number],S, Naina Benson MD [id number],S, Naina Benson MD [id number],S, Naina Benson MD [id number],W, Naina Benson MD [id number],W, Naina Benson MD Cardiology Ikereji Guzmán Cardiology: H er updated medication list for this problem includes: Amlodipine 5 Mg Tablet (Amlodipine) Metoprolol Succinate 25 Mg Tablet Extended Release 24 Hr (Metoprolol succinate) ..... Take 1 tablet by mouth every day Aspirin 81 Mg Tablet,delayed Release (dr/ec) (Aspirin) ..... Take 1 tablet by mouth once a day Ike lluvia [facility]iology [facility] Ike norma [facility]iology [facility] Cardiology: H er updated medication list for [...] Patient Naina schaefer MD Cardiology New Patient aNina schaefer MD Date Name Holter Monitor 48 [...]
--- OUTSIDE RECORDS SUMMARY | 2024-12-15 18:29 | XMS_ITS | Clinical Summary ---
Author Organization [facility] [address] [facility] Address [address] [place] [address] Care Team Providers Care Railroad Signal Technician Name Role Phone Eladio Penn MD Unavailable [phone] Eladio Penn MD Primary Care Provider + Cody Ho MD Unavailable [phone] Allergies No known active allergies Medications metoprolol XL (TOPROL-XL) 25 mg extended release tablet Take 1 tablet (25 mg total) by mouth daily 90 tablet 4 2 Active cetirizine (Children's ZyrTEC Allergy) 10 mg tablet,disinte grating Take by mouth nightly Active azelastine (ASTELIN) 137 mcg (0.1 %) nasal spray USE 1 SPRAY IN EACH NOSTRIL TWICE DAILY DIRECTED 180 mL 3 4 Active amLODIPine (NORVASC) 5 mg tablet Take 1 tablet (5 mg total) by mouth daily 90 tablet [address] (CYMBALTA) 60 mg capsule Take 1 capsule (60 mg total) by mouth daily 90 capsule 3 4 Active multivitamin tabletIndicati ons:Vitamin Deficiency Prevention Take 1 tablet by mouth Active fluticasone propionate (FLONASE) 50 mcg/actuation nasal spray SHAKE LIQUID AND USE 2 SPRAYS IN EACH NOSTRIL DAILY 48 g 3 4 Active montelukast (SINGULAIR) 10 mg tablet TAKE 1 TABLET(10 MG) BY MOUTH EVERY NIGHT 90 tablet 3 4 Active atorvastatin (LIPITOR) 20 mg tablet TAKE 1 TABLET(20 MG) BY MOUTH EVERY NIGHT 90 tablet 3 5 Active olmesartan-hyd rochlorothiazi de (BENICAR HCT) 40-12.5 mg per tablet TAKE 1 TABLET BY MOUTH DAILY 90 tablet 3 5 026 Active olmesartan-hyd rochlorothiazi de (BENICAR HCT) 40-12.5 mg per tablet TAKE 1 TABLET BY MOUTH DAILY 90 tablet 3 4 025 Discontinued Active Problems Problem Noted Date Diagnosed Date Memory changes 01/16/2022 Moderate episode of recurrent major depressive d isorder 06/01/2021 Assessment & Plan (06/01/2021 10:04 PM CDT): Stable with the cymbalta BMI 21.0-21.9, adult 05/28/2021 Assessment & Plan (05/28/2021 9:57 AM CDT): Weight/BMI is in healthy range. Continue healthy lifestyle to maintain. Sleep disturbance 02/05/2020 Assessment & Plan (04/08/2020 10:06 PM CDT): Improving with the Cymbalta 30mg. [place] to increase to 60mg. Tolerating well. Assessment & Plan (02/05/2020 7:26 PM CDT): Start cymbalta 30mg one daily to help with sleep, chronic pain and some underlying anxiety. Reviewed risks, benefit, alternatives, side effects and proper use. Chronic pain of left knee 01/24/2020 Assessment & Plan (02/05/2020 7:19 PM CDT): Start PT. If pain persists will consider PT referral Osteopenia 10/13/2019 Assessment & Plan (10/21/2020 10:37 PM CDT): Calcium, VitD and exercise Next DXA 2021 Assessment & Plan (10/16/2019 9:03 PM CDT): Check DXA Needs Calcium, Vit D and Weight bearing exercise. Dyshidrotic eczema 10/13/2019 Assessment & Plan (10/16/2019 9:07 PM CDT): This is a significant, separately identifiable problem that was evaluated and managed on the same day as the wellness exam Diprolene ointment to area. May occlude the hand at night in a glove Abnormal EKG 09/19/2019 Aortic valve regurgitation 02/21/2014 Overview (12/03/2020): aortic regurg Essential hypertension 12/24/2013 Overview (12/03/2020): BENIGN HYPERTENSION Assessment & Plan (06/01/2021 10:03 PM CDT): Bp is stable/in acceptable range for any co-morbidities. Encouraged to limit sodium intake and exercise for weight control. Continue per Dr. Benson Assessment & Plan (10/21/2020 10:37 PM CDT): Bp is stable/in acceptable range for any co-morbidities. Encouraged to limit sodium intake and exercise for weight control. Continue lisinopril/HCTZ Assessment & Plan (10/16/2019 9:03 PM CDT): Bp is stable/in acceptable range for any co-morbidities. Encouraged to limit sodium intake and exercise for weight control. Continue Lisinopril/HCTZ 20/12.5 Hyperlipidemia 12/24/2013 Overview (11/14/2016): HYPERLIPIDEMIA NEC/NOS Assessment & Plan (06/01/2021 10:03 PM CDT): Encouraged patient to follow fat/low chol diet like the Mediterranean diet. Increase good fats in the diet. Increase exercise. Monitor labs as needed. Assessment & Plan (10/21/2020 10:37 PM CDT): Encouraged patient to follow fat/low chol diet like the Mediterranean diet. Increase good fats in the diet. Increase exercise. Monitor labs as needed. Assessment & Plan (10/16/2019 9:04 PM CDT): Encouraged patient to continue low fat/low chol diet. Continue exercise. Increase good fats in the diet. Monitor labs as needed. Request recent labs to make sure they are done. Resolved Problems Problem Noted Date Diagnosed Date Resolved Date Acute non-recurrent pansinusitis 06/09/2021 07/18/2024 Assessment & Plan (06/09/2021 2:37 PM CDT): Offered COVID testing, she declined. Start antibiotic, antihistamine (Claritin OR Zyrtec), Mucinex 12hour and Steroid nasal spray (Flonase). Push fluids. Rest. Supportive care. If sxs worsen or don\'t improve, pt is to followup in the office. Nonintractable headache 03/24/2021 12/0 04/2024 Assessment & Plan (03/24/2021 7:23 PM CDT): Suspect allergies but will check COVID testing to rule as difficult to distinguish. She should quarantine until her results are available. Plan to collect at [facility] Collection site in [place]. Start antihistamine (Claritin OR Zyrtec), Mucinex 12hour and Steroid nasal spray (Flonase). Push fluids. Rest. Supportive care. If sxs worsen or don\'t improve, pt is to followup in the office. Insect bite of right upper arm 01/27/2021 07/18/2024 Assessment & Plan (01/27/2021 12:50 AM CDT): Start keflex. Keep area clean and dry. Tylenol prn. Call if redness increases or if notes depth/necrosis. Acute recurrent pansinusitis 12/04/2020 07/18/2024 Assessment & Plan (12/04/2020 10:22 AM CDT): She will start amoxicillin tid She will continue with zyrtec, flonase, and tylenol q6h prn headache She will notify office if not improving or if worsening in the next 72h Will refer her to equine pharmacology technician to discuss further evaluation and treatment - she requests Neal BMI 20.0-20.9, adult 10/22/2020 Assessment & Plan (01/27/2021 12:50 AM CDT): Weight/BMI is in healthy range. Continue healthy lifestyle to maintain. Assessment & Plan (10/22/2020 9:36 AM CDT): Weight/BMI is in healthy range. Continue healthy lifestyle to maintain. Fatigue 10/22/2020 06/01/2021 Assessment & Plan (10/22/2020 10:09 AM CDT): Probably multifactorial. Check labs and followup to re-evaluate Diabetes mellitus screening 10/22/2020 06/01/2021 Assessment & Plan (10/22/2020 10:09 AM CDT): Check labs Annual physical exam 10/21/2020 Assessment & Plan (10/21/2020 10:36 PM CDT): Encouraged healthy lifestyle, good nutrition and exercise. Encouraged Calcium and Vitamin D and weight bearing exercise for bone health. Reviewed immunizations Reviewed age appropirate screenings. Acute non-recurrent frontal sinusitis 08/26/2020 12/04/2020 Assessment & Plan (08/26/2020 6:30 PM FIRING PIN GAUGER): Start antibiotic, antihistamine (Claritin OR Zyrtec), Mucinex 12hour and Steroid nasal spray (Flonase). Push fluids. Rest. Supportive care. If sxs worsen or don\'t improve, pt is to followup in the office. Acute non-recurrent frontal sinusitis 08/26/2020 08/26/2020 Need for shingles vaccine 05/16/2020 Assessment & Plan (05/16/2020 9:23 PM CDT): Updated in office today Need for immunization against influenza 05/16/2020 10/21/2020 Assessment & Plan (05/16/2020 9:24 PM CDT): Updated in office today Acute intractable headache 05/14/2020 1 09/18/2023 Assessment & Plan (05/14/2020 5:07 PM CDT): Will evaluate further with covid-19 testing. Advised her to self-quarantine until results are available and/or symptoms resolve. Advised her to report to the er if worsening. Chills 05/14/2020 06/01/2021 Assessment & Plan (05/14/2020 5:07 PM CDT): Will evaluate further with covid-19 testing. Advised her to self-quarantine until results are available and/or symptoms resolve. Advised her to report to the er if worsening. Cough 05/14/2020 06/01/2021 Assessment & Plan (05/14/2020 5:07 PM CDT): Will evaluate further with covid-19 testing. Advised her to self-quarantine until results are available and/or symptoms resolve. Advised her to report to the er if worsening. Constipation 04/11/2020 07/18/2024 Assessment & Plan (10/22/2020 10:08 AM CDT): Improved since colonoscopy - Using linzess and other products prn Assessment & Plan (05/09/2020 12:37 PM CDT): -reports feeling constipated. Associated with abdominal bloating. -discuss the need to get a colonoscopy done given her change in stool caliber symptom along with constipation. She will schedule for the colonoscopy, she is willing to do that today. Will schedule her. -will initiate therapy with Linzess every day. -she will continue using methylcellulose. Assessment & Plan (04/11/2020 11:33 AM CDT): -reports feeling constipated. Associated with abdominal bloating. -discuss the need to get a colonoscopy done given her change in stool caliber symptom along with constipation. She will schedule for the colonoscopy, this was ordered during the last clinic visit. -will give her docusate stool softener to be used to twice a day.\ -will give her MiraLax. -she will continue using methylcellulose. Nausea 04/11/2020 06/01/2021 Assessment & Plan (05/14/2020 5:06 PM CDT): Advised BRAT diet, gatorade sips q20min Advised to er if unable to keep food/fluids down Assessment & Plan (04/11/2020 11:34 AM CDT): -most likely a component of or not feeling well in terms of her sinus drainage etc. Will give her Zofran to be used on a p.r.n. basis with nausea. Sinus drainage 04/11/2020 07/18/2024 Assessment & Plan (04/11/2020 11:35 AM CDT): -non purulent. Mucoid. Along with mild symptoms of lightheadedness. No reported fainting. Recommended, Use of neti pot Warm water with honey, grated kareem and lemon. Room temperature water Pedialyte Gatorade Coconut water Abdominal pain 04/11/2020 07/18/2024 Assessment & Plan (04/11/2020 11:33 AM CDT): -will give her Levsin to be used on a p.r.n. basis for abdominal pain BMI 20.0-20.9, adult 03/19/2020 03/15/2 021 Assessment & Plan (04/08/2020 10:06 PM CDT): Weight/BMI is in healthy range. Continue healthy lifestyle to maintain. Assessment & Plan (03/19/2020 2:17 PM CDT): Continue healthy lifestyle to continue healthy weight Sore throat 03/19/2020 06/01/2021 Assessment & Plan (08/26/2020 6:31 PM FIRING PIN GAUGER): Will Rule out COVID due to the pandemic in the area. Will send for testing at [facility]. She should quarantine until results are available. If sxs worsen or progress she should consider ER. Assessment & Plan (03/19/2020 10:28 PM CDT): Strep test was negative. Suspect allergies vs viral. Start antihistamine (Claritin OR Zyrtec), Mucinex 12hour and Steroid nasal spray (Flonase) and Singulair. Push fluids. Rest. Supportive care. If sxs worsen or don\'t improve, pt is to followup in the office. Bilateral impacted cerumen 03/19/2020 1 Assessment & Plan (05/16/2020 9:22 PM CDT): Ears were washed. See Exam Patient tolerated well Assessment & Plan (03/19/2020 10:30 PM CDT): Debrox otc. Will recheck at next visit to determine if clear vs need washed. Other fatigue 02/05/2020 04/08/2020 Assessment & Plan (02/05/2020 7:24 PM CDT): Probably multifactorial. Check labs and followup to re-evaluate Lipid screening 02/05/2020 04/08/2020 Assessment & Plan (02/05/2020 7:24 PM CDT): Check labs Diabetes mellitus screening 02/05/2020 04/08/2020 Assessment & Plan (02/05/2020 7:24 PM CDT): Check labs Bloating 02/02/2020 07/18/2024 Overview (02/02/2020): Added automatically from request for surgery [id number] Assessment & Plan (02/02/2020 12:19 PM CDT): -will initiate therapy with methylcellulose as noted before. Also recommended discussed and counseled for dietary and lifestyle changes as noted below. -For food habits, recommended mainly plant based diet, which is higher quality diet and has been shown to have numerous benefits in the body and the mind. -Avoid eating raw vegetables and salads, particularly vegetables such as broccoli, [place] sprouts. If he denied all they should be cooked. -avoid salads with high water content such as lettuce. -avoid the foods with high water content and high fructose content such as melons, watermelon, Cantaloupe. -once his symptoms are resolved, then to re-introduce one vegetable/salad/fruit per week. -drink coconut water as one of the preferred beverages. -yogurt is a good probiotic. Should be consumed daily. Preferably before breakfast or lunch. If lactose intolerant can't use daily alternatives which are available all can use, Kambucha which is of probiotic drink. -would recommend regular use of kareem root, this is a good GI tonic. -would recommend regular use of honey, can be used in the form of warm tea with lemon or kareem. These are good GI tonic and pre biotics and does help maintain good GI bacterial juan pablo. Incontinence of feces 02/02/20202023 Overview (02/02/2020): Added automatically from request for surgery [id number] Assessment & Plan (02/02/2020 12:18 PM CDT): -will initiate therapy with methylcellulose on a daily basis this will help her with the fecal incontinence, mild which she has been experiencing. In case that she does not have any relief of symptoms will consider adding Imodium to the regimen however I do not think that would be needed will continue to monitor. This will also help her with her bloating symptom. BMI 21.0-21.9, adult 10/13/2019 020 Assessment & Plan (10/13/2019 10:32 AM FIRING PIN GAUGER): Weight/BMI is in healthy range. Continue healthy lifestyle to maintain. Annual physical exam 10/13/2019 020 Assessment & Plan (10/16/2019 9:06 PM CDT): Encouraged healthy lifestyle, good nutrition and exercise. Encouraged Calcium and Vitamin D and weight bearing exercise for bone health. Reviewed immunizations Reviewed age appropirate screenings. Change in stool 10/13/2019 07/18/2024 Assessment & Plan (06/06/2020 11:36 AM CDT): -reports improvement in the stool caliber. However she remains extremely concern. Colonoscopy on 05/22/2020, showed presence of redundant and colon with significant looping. Otherwise normal. No significant hemorrhoids were noted at that time. -note that she has had negative stool studies including ova and parasite. -patient had numerous pictures of her stools and her phone which she showed to me. She also reported that she has been looking on the Internet and is extremely concern. -I reassured her to the best of my ability. Recommended her to continue with the treatment regimen. -encouraged her to continue using methylcellulose. This will help her with maintaining the stool caliber, treatment in prevention of constipation and abdominal bloating. Also encouraged her to maintain healthy eating habits. Discussed the pathophysiology and working of GI tract in detail. - Recommended, discussed in detail the rationale and mechanism of action for measures below and counseled for dietary and lifestyle changes as noted below. These are soft guidelines that with increase GI health and its overall efficiency. -For food habits, recommended mainly plant based diet, which is higher quality diet and has been shown to have numerous benefits in the body and the mind. This is recommended as the plantar simpler of foods which are easier for the body to digest when it is under stress, physical, mental or emotional. -Avoid eating raw vegetables and salads, particularly vegetables such as broccoli, [place] sprouts. If used, all they should be cooked. -avoid salads with high water content such as lettuce. -avoid the foods with high water content and high fructose content such as melons, watermelon, Cantaloupe. These cause rapid transit to the GI tract and into fair with the GI bacterial juan pablo and can result in abdominal gas and bloating in susceptible people. -once his symptoms are resolved, then to re-introduce one vegetable/salad/fruit per week. -drink coconut water as one of the preferred beverages. -consider use of yogurt, which is a good probiotic. Should be consumed daily if possible. Preferably before breakfast or lunch. If lactose intolerant can use dairy alternative such as almond milk or coconut milk yogurt. Additional probiotic therapy has not been shown to be effective in most scenarios in clinical studies. -consider use of kareem root, this is a good GI tonic. -considere use of honey, can be used in the form of warm tea with lemon or kareem. These are good GI tonic and pre biotics and does help maintain good GI bacterial juan pablo. These measures will help in decreasing the symptom of abdominal bloating, belching, nausea, will help in regularize bowel habits and keep them regular. Assessment & Plan (02/05/2020 7:24 PM CDT): Refer to GI for further evaluation Assessment & Plan (02/02/2020 12:17 PM CDT): -change in bowel habits, change in stool caliber noted. Extreme concern for parasitic infection. Per her chiropractor and the patient is also extremely anxious about it she has had negative ova and parasite and stool culture in October. For her reassurance in the satisfaction will reorder stool ova and parasite and stool culture. -will schedule for a colonoscopy for further evaluation. -will also obtain fecal lactoferrin for any possibility of any inflammatory cells noted in the stool. The possibility her remains low. Assessment & Plan (10/16/2019 9:06 PM CDT): This is a significant, separately identifiable problem that was evaluated and managed on the same day as the wellness exam Recommend stool cultures and O&P Need for 23-polyvalent pneum ococcal polysaccharide vaccine 10/13/2019 05/16/2020 Assessment & Plan (10/16/2019 9:05 PM CDT): Updated in office today Encounters Date Type Department Care Team Description 09/26/2024 [facility] [address] [place] [address] Eladio Penn MD took 2 doses of medications from Last 3 Months Immunizations Immunization Administration Dates Next Due Influenza, Quadrivalent, Hig h Dose, Preservative Free, Intrr 07/17/2022,04/19/2021,05/16/2020 Influenza, Trivalent, Adjuva nted, Intramuscular 06/19/2024 Influenza, Unspecified 04/18/2021,2019(Deferred: Patient Refused) Pfizer SARS-CoV-2 Monovalent Vaccination (12+ Yrs) NAVARRO-READY TO USE 11/22/2021 Pfizer SARS-CoV-2 Monovalent Vaccination (12+ Yrs) PURPLE 11/22/2021,11/04/2020,10/16/2020 Pfizer Sars-Cov-2 Bivalent V accination (12+ YRS) 09/02/2022 Pneumococcal Polysaccharide PPV23 10/18/2019,12/2019,10/08/2014 RSV Vaccine, Pref, Recombina nt, Subunit, Adjuvanted, PF, IM (Arexvy) 07/26/2023 ZOSTER Recombinant 05/16/2020,10/18/2019 Surgical History Surgery Date Site/Laterality Comments OTHER SURGICAL HISTORY Hyperlipidemia: OTHER SURGICAL HISTORY 08/10/1989 - 08/09/1990 : D & C OTHER SURGICAL HISTORY 08/10/1996 - 08/09/1997 : Hysterectomy OTHER SURGICAL HISTORY 08/10/1995 - 08/09/1996 : Benign breast lump HYSTERECTOMY BREAST LUMPECTOMY benign COLONOSCOPY 08/10/2012 Medical History Medical History Date Comments Hx Other Medical Chronic Anxiety Hyperlipidemia Hyperlipidemia Hx Other Medical Cataracts Hx Other Medical Peptic Ulcer Di sease remote hx. Hx Other Medical ankle fracture BMI 21.0-21.9, adult 10/13/2019 Family History Medical History Relation Name Comments Diabetes Brother 1 Heart attack Brother 1 Heart disease Brother 1 Heart attack Brother 2 Heart disease Brother 2 Other Brother 3 [place] age 35,A-fib ; Alzheimer's disease Father Coronary artery disease Father Alex nary artery disease; Cause of : Coronary artery disease Heart attack Father [place]; Heart disease Father Heart disease Mother Other Mother Undefined Heart Disease; Cause of : Undefined Heart Disease Heart disease Sister 1 Coronary artery disease Sister 2 Alex nary artery disease; Relation Name Status Comments Brother 1 (Age 55) Brother 2 Alive Brother 3 Father Mother (Age 79) Sister 1 Alive Sister 2 Social History Tobacco Use Types Packs/Day Years Used Date Smoking Tobacco: Never Smokeless Tobacco: Never Alcohol Use Standard Drinks/Week Comments Yes 0 (1 standard drink = 0.6 oz pur e alcohol) socailly AUDIT-C Answer Date Recorded Frequency of Alcohol Consumption Not on file 10/22/2020 Average Number of Drinks Not on file 021 Q3: How often do you have si x or more drinks on one occasion? Never 10/22/2020 PHQ-2 Answer Date Recorded PHQ-2 Total Score (If total score is 3 or more points, staff should administer the PHQ-9) 0 01/11/2021 Comments Unknown Sex and Gender Information Value Date Recorded Sex Assigned at Not on file Legal Sex Female 12:24 AM FIRING PIN GAUGER Gender Identity Female 07/13/2022 11:22 AM FIRING PIN GAUGER Sexual Orientation Straight 07/13/2022 11 :22 AM FIRING PIN GAUGER Occupation Industry Job Start Date Job End Date Retired- [employer] Not on file Not on file Not on file Obstetrics History Last Filed Vital Signs Vital Sign Reading Time Taken Comments Blood Pressure 120/78 07/18/2024 1:52 PM FIRING PIN GAUGER Pulse 79 07/18/2024 1:52 PM FIRING PIN GAUGER Temperature 36.8 C (98.2 F) 03/03/2023 7:23 PM CDT Respiratory Rate 12 06/06/2020 9:20 AM CDT Oxygen Saturation 96% 07/18/2024 1:52 PM FIRING PIN GAUGER Inhaled Oxygen Concentration - - Weight 66.7 kg (147 lb) 07/18/2024 1:52 PM FIRING PIN GAUGER Height 154.9 cm (5' 1 ) 07/18/2024 1:52 PM FIRING PIN GAUGER Body Mass Index 27.78 07/18/2024 1:52 PM FIRING PIN GAUGER Plan of Treatment Health Maintenance Due Date Last Done Comments Hepatitis C Screening 1945 DTaP/Tdap/Td Vaccine (1 - Tdap) 1956 Hepatitis B Screening 1963 Pneumococcal vaccine 65+ (2 of 2 - PCV) 10/17/2020 10/18/2019, 10/13/2019, 10/08/2014 Osteoporosis Screening-Bone Density Scan 10/17/2021 10/18/2019 Well Visit 65+ 10/22/2021 10/22/2020, 10/13/2019 Fall Risk Assessment 12/04/2021 12/04/2020, 10/22/2020, 05/22/2020, Additional history exists Depression Screening 01/11/2022 01/11/2021, 12/04/2020, 10/22/2020, Additional history exists Covid-19 Vaccine (2 5 season) 2024 04/27/2023, 09/02/2022, 11/22/2021, Additional history exists Zoster Vaccine Completed 05/16/2020, 10/18/2019 Colon Cancer Screening-CT Colonography Discontinued 05/22/2020 Colon Cancer Screening-Colonoscopy Discontinued 05/22/2020 Colon Cancer Screening-DNA Stool Discontinued 05/22/20 Colon Cancer Screening-FIT Discontinued 05/22/2020 Colon Cancer Screening-FOBT Discontinued 05/22/2020 Colon Cancer Screening-Sigmoidoscopy Discontinued 05/22/2020 Colorectal Cancer Screening Discontinued Breast Cancer Screening-Mammogram Discontinued 021, 10/03/2019 Influenza Vaccine Completed 06/19/2024, , 04/19/2021, Additional history exists Procedures Procedure Name Priority Date/Time Associated Diagnosis Comments MAMMOGRAPHY Routine 01/25/2021 COLONOSCOPY 05/22/2020 10:05 AM CDT DEXA SCAN Routine 10/18/2019 from Last 3 Months or Most Recently Relevant to Health Maintenance Results * HM MAMMOGRAPHY (01/25/2021) [facility] Edited Result - Final * COLONOSCOPY (05/22/2020 10:05 AM CDT) Anatomical Region Laterality Modality Other Narrative Procedure Note Luzmaria Quarles MD - 05/22/2020 10:05 AM CDT [facility] Patient Name: Yessy Franco Procedure Date: 05/22/2020 10:05AM Date of : 1945 Admit Type: Outpatient Age: 75 Gender: Female Note Status: Finalized Attending MD: Luzmaria Quarles M.D. Procedure Date: 05/22/2020 Procedure: Colonoscopy Indications: Last colonoscopy: date unknown, Change in stool caliber, Constipation Providers: Luzmaria Quarles M.D., Jimmy Reynolds CHOPPER FEEDER(Anesthesia Staff), Keyur Yost RN Referring MD: Michelle Thomas PA-C Medicines: Monitored Anesthesia Care Complications: No immediate complications. Estimated Blood Loss: Estimated blood loss: none. Procedure: Pre-Anesthesia Assessment: - Prior to the procedure, a History and Physical was performed, and patient medications and allergieswere reviewed. The patient is competent. The risks and benefits of the procedure and the sedation optionsand risks were discussed with the patient. All questions were answered and informed consent was obtained. Patient identification and proposed procedure were verified by the physician and the nurse in the pre-procedure area in the procedure room. MentalStatus Examination: alert and oriented. Airway Examination: normal oropharyngeal airway and neck mobility. Respiratory Examination: clear to auscultation. CV Examination: normal. Prophylactic Antibiotics: The patient does not require prophylactic antibiotics. Prior Anticoagulants: The patient has taken noprevious anticoagulant or antiplatelet agents. ASA Grade Assessment: III - A patient with severe systemic disease. After reviewing the risks and benefits, the patient was deemed in satisfactory condition toundergo the procedure. The anesthesia plan was to usemonitored anesthesia care (MAC). Immediately prior to administration of medications, the patient was re-assessed for adequacy to receive sedatives. The heart rate, respiratory rate, oxygen saturations,blood pressure, adequacy of pulmonary ventilation, and response to care were monitored throughout the procedure. The physical status of the patient was re-assessed after the procedure. - The risks and benefits of the procedure and the sedation options and risks were discussed with the patient. All questions were answered and informed consent was obtained. After I obtained informed consent, the scope waspassed under direct vision. Throughout the procedure, the patient's blood pressure, pulse, and oxygensaturations were monitored continuously. The scope was passedunder direct vision. The Colonoscope was introducedthrough the anus and advanced to the the cecum, identifiedby appendiceal orifice and ileocecal valve. The colonoscopy was performed without difficulty. The patient tolerated the procedure well. The quality of the bowel preparation was good. The ileocecal valve, appendiceal orifice, and rectum were photographed.The bowel preparation used was SUPREP. Bowel prep was administered using a split dose. Findings: The perianal and digital rectal examinations were normal. The colon (entire examined portion) was significantly redundant. Advancing the scope required applying abdominal pressure. The colon (entire examined portion) revealed significantly excessive looping. Advancing the scope required straightening and shorteningthe scope to obtain bowel loop reduction. Impression: - Redundant colon. - There was significant looping of the colon. - No specimens collected. Recommendation: - Discharge patient to home (ambulatory). - Resume previous diet. - Continue present medications. - Repeat colonoscopy in 5 years for screeningpurposes. - Continue with the recommendations made on theintial clinic visit. Procedure Code(s): --- Professional --- 91217, Colonoscopy, flexible; diagnostic, including collection of specimen(s) by brushing or washing,when performed (separate procedure) Diagnosis Code(s): --- Professional --- R19.5, Other fecal abnormalities K59.00, Constipation, unspecified Q43.8, Other specified congenital malformations of intestine CPT copyright 2017 [employer]. All rights reserved. The codes documented in this report are preliminary and upon advanced manufacturing engineer reviewmay be revised to meet current compliance requirements. Electronically signed by Willam Dutta MD Luzmaria Quarles M.D. 05/22/2020 10:39:51 AM This report has been electronically signed by the physician. Number of Addenda: 0 Note Initiated On: 05/22/2020 10:05 AM Luzmaria Quarles MD ENDOSCOPY PROCEDURES Final Re sult * DEXA SCAN (10/18/2019) HM DEXA Scan Abnormal Comment:MV Imaging Spine ( - 1.9), LT Hip (-1.6) RT Hip (-1.3) Historical Provider HEALTH MAINTENANCE Final Result from Last 3 Months or Most Recently Relevant to Health Maintenance Insurance MEDICARE [facility] Care Teams Railroad Signal Technician Relationship Specialty Start Date End Date Eladio Penn MD [address] [place] [address] PCP - General 09/06/21 Eladio Penn MD [address] [place] [address] Consulting Physician Endocrinology Diabetes & Metabolism 07/16/21 Cody Ho MD [address] [place] [address] Referring Physician Orthopedic Surgery 01/15/23
--- OUTSIDE RECORDS SUMMARY | 2024-12-15 18:29 | XMS_ITS | Referral Summary ---
Author Organization [facility] [address] [facility] Address [address] [place] [address] Care Team Providers Care Spinning Operator Name Role Phone Eladio Penn MD Unavailable [phone] Eladio Penn MD Primary Care Provider + Cody Ho MD Unavailable [phone] Encounters Date Type Department Care Team Description 09/26/2024 [facility] [facility] [address] [place] [phone] Eladio Penn MD took 2 doses of medications from Last 3 Months Allergies No known active allergies Medications metoprolol [...] and exercise for weight control. Continue Lisinopril/HCTZ /.5 Hyperlipidemia 12/24/2013 Overview (11/14/2016): HYPERLIPIDEMIA NEC/NOS Assessment [...] results are available. Plan to collect at [facility] Collection site in [place]. Start antihistamine (Claritin OR Zyrtec), Mucinex 12hour [...] the next 72h Will refer her to bindery machine operator to discuss further evaluation and treatment - [...] 12/04/2020 Assessment & Plan (08/26/2020 6:30 PM E COMMERCE SOLUTION ARCHITECT): Start antibiotic, antihistamine (Claritin OR Zyrtec), Mucinex [...] for abdominal pain BMI 20.0-20.9, adult 03/19/2020 03/15/ 021 Assessment & Plan (04/08/2020 10:06 PM CDT): Weight/BMI is in healthy range. Continue healthy lifestyle to maintain. Assessment & Plan (03/19/2020 2:17 PM CDT): Continue healthy lifestyle to continue healthy weight Sore throat 03/19/2020 06/01/2021 Assessment & Plan (08/26/2020 6:31 PM E COMMERCE SOLUTION ARCHITECT): Will Rule out COVID due to the pandemic in the area. Will send for testing at [facility]. She should quarantine until results are available. [...] (02/02/2020): Added automatically from request for surgery [id number] Assessment & Plan (02/02/2020 12:19 PM CDT): [...] and salads, particularly vegetables such as broccoli, [place] sprouts. If he denied all they should [...] (02/02/2020): Added automatically from request for surgery [id number] Assessment & Plan (02/02/2020 12:18 PM CDT): [...] 020 Assessment & Plan (10/13/2019 10:32 AM E COMMERCE SOLUTION ARCHITECT): Weight/BMI is in healthy range. Continue healthy lifestyle to maintain. Annual physical exam 10/13/2019 Assessment & Plan (10/16/2019 9:06 PM CDT): [...] and salads, particularly vegetables such as broccoli, [place] sprouts. If used, all they should be [...] 9:05 PM CDT): Updated in office today Immunizations Immunization Administration Dates Next Due Influenza, Quadrivalent, Hig h Dose, Preservative Free, Intrr 07/17/2022,04/19/2021,05/16/2020 Influenza, Trivalent, Adjuva nted, Intramuscular 06/19/2024 Influenza, Unspecified 04/18/2021,2019(Deferred: Patient Refused) LegUP SARS-CoV-2 Monovalent Vaccination (12+ Yrs) NAVARRO-READY TO USE 11/22/2021 Pfizer SARS-CoV-2 Monovalent Vaccination (12+ Yrs) PURPLE 11/22/2021,11/04/2020,10/16/2020 Pfizer Sars-Cov-2 Bivalent V accination (12+ YRS) 09/02/2022 Pneumococcal Polysaccharide PPV23 10/18/2019,12/2019,10/08/2014 RSV Vaccine, Pref, Recombina nt, Subunit, Adjuvanted, PF, IM (Arexvy) 07/26/2023 ZOSTER Recombinant 05/16/2020,10/18/2019 Social History Tobacco Use Types Packs/Day Years [...] on file Legal Sex Female 12:24 AM E COMMERCE SOLUTION ARCHITECT Gender Identity Female 07/13/2022 11:22 AM E COMMERCE SOLUTION ARCHITECT Sexual Orientation Straight 07/13/2022 11 :22 AM E COMMERCE SOLUTION ARCHITECT Occupation Industry Job Start Date Job End Date Retired- [employer] Not on file Not on file Not on file Last Filed Vital Signs Vital Sign Reading Time Taken Comments Blood Pressure 120/78 07/18/2024 1:52 PM E COMMERCE SOLUTION ARCHITECT Pulse 79 07/18/2024 1:52 PM E COMMERCE SOLUTION ARCHITECT Temperature 36.8 C (98.2 F) 03/03/2023 7:23 PM CDT Respiratory Rate 12 06/06/2020 9:20 AM CDT Oxygen Saturation 96% 07/18/2024 1:52 PM E COMMERCE SOLUTION ARCHITECT Inhaled Oxygen Concentration - - Weight 66.7 kg (147 lb) 07/18/2024 1:52 PM E COMMERCE SOLUTION ARCHITECT Height 154.9 cm (5' 1 ) 07/18/2024 1:52 PM E COMMERCE SOLUTION ARCHITECT Body Mass Index 27.78 07/18/2024 1:52 PM E COMMERCE SOLUTION ARCHITECT Plan of Treatment Not on file Procedures Procedure Name Priority Date/Time Associated Diagnosis Comments MAMMOGRAPHY Routine 01/25/2021 COLONOSCOPY 05/22/2020 10:05 AM CDT DEXA SCAN Routine 10/18/2019 from Last 3 Months or Most Recently Relevant to Health Maintenance Results * HM MAMMOGRAPHY (01/25/2021) us Michelle [facility] Edited Result - Final * COLONOSCOPY (05/22/2020 10:05 AM CDT) Anatomical Region Laterality Modality Other Narrative Procedure Note Luzmaria Quarles MD - 05/22/2020 10:05 AM CDT [facility] End[facility] Patient Name: Yessy Franco Procedure Date: 05/22/2020 10:05AM Date of : 1945 Admit Type: Outpatient Age: 75 Gender: Female Note Status: Finalized Attending MD: Luzmaria Quarles M.D. Procedure Date: 05/22/2020 Procedure: Colonoscopy Indications: Last colonoscopy: date unknown, Change in stool caliber, Constipation Providers: Luzmaria Quarles M.D., Jimmy Reynolds CRNA(Anesthesia Staff), Keyur Yost RN Referring MD: Michelle [...] clinic visit. Procedure Code(s): --- Professional --- 14207, Colonoscopy, flexible; diagnostic, including collection of specimen(s) by brushing or washing,when performed (separate procedure) Diagnosis Code(s): --- Professional --- R19.5, Other fecal abnormalities K59.00, Constipation, unspecified Q43.8, Other specified congenital malformations of intestine CPT copyright 2017 [employer]. All rights reserved. The codes documented in this report are preliminary and upon biomass production manager reviewmay be revised to meet current compliance requirements. Electronically signed by Willam Dutta MD Luzmaria Quarles M.D. 05/22/2020 10:39:51 AM This report has been electronically signed by the physician. Number of Addenda: 0 Note Initiated On: 05/22/2020 10:05 AM Luzmaria Quarles MD ENDOSCOPY PROCEDURES Final Re sult * DEXA SCAN (10/18/2019) DEXA Scan Abnormal Comment:MV Imaging Spine ( - 1.9), LT Hip (-1.6) RT Hip (-1.3) Historical Provider HEALTH MAINTENANCE Final Result from Last 3 Months or Most Recently Relevant to Health Maintenance Insurance MEDICARE FOR[facility]IC[facility] [place] [address] FOR[facility]LY [facility] Care Teams Spinning Operator Relationship Specialty Start Date End Date Eladio Penn MD [address] [place] [address] PCP - General 09/06/21 Eladio Penn MD [address] [facility] [address] [place] [address] Consulting Physician Endocrinology Diabetes & Metabolism 07/16/21 Cody Ho MD [address] [place] [address] Referring Physician Orthopedic Surgery 01/15/23
--- OUTSIDE RECORDS SUMMARY | 2024-12-15 18:29 | XMS_ITS | Clinical Summary ---
Author Organization [facility] Address [address] [place] [address] Care Team Providers Care Assistant Case Manager Name Role Phone Unavailable Primary Care Provider Unavailabl e Source Comments [facility],non-owned Affiliates and Associated Physician Practices is amultiple site organization consisting of ambulatory clinics and hospital sitesin [place], [place], [place] and [place]. This disclosure is being madepursuant to the Care Everywhere program and may not contain all information available regarding this patient. Last updated 18.[facility] Allergies No known active allergies Medications * Be aware that medications may not be up to date on this document. Alwaysverify current medications with the patient. 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 Gender Identity Not on file Sexual Orientation Not on file Last Filed Vital Signs Vital Sign Reading Time Taken Comments Blood Pressure 124/80 10/04/2019 9:42 AM WOOD CASKET ASSEMBLER Pulse 72 10/04/2019 9:42 AM WOOD CASKET ASSEMBLER Temperature 36.7 C (98.1 F) 10/04/2019 9:42 AM WOOD CASKET ASSEMBLER Respiratory Rate 18 10/04/2019 9:42 AM WOOD CASKET ASSEMBLER Oxygen Saturation 98% 10/04/2019 9:42 AM WOOD CASKET ASSEMBLER Inhaled Oxygen Concentration - - Weight 51.7 kg (114 lb) 10/04/2019 9:42 AM WOOD CASKET ASSEMBLER Height 154.9 cm (5' 1 ) 10/04/2019 9:42 AM WOOD CASKET ASSEMBLER Body Mass Index 21.54 10/04/2019 9:42 AM WOOD CASKET ASSEMBLER Plan of Treatment Health Maintenance Due Date [...] patient's age to complete [place] [address] FAVIOLA
[2024-12-15 18:51] VITALS: BP 175/77; PULSE 61; RESP 16; TEMP 36.6; O2SAT 98
--- NOTE | 2024-12-15 18:51 | PC.NURSE ---
1800: Head of bed elevated, ice pack to left forehead.
== END 2024-12-15 20:05 | disposition home or self-care (01) ==
PROVIDERS: Emergency Provider Student in an Organized Health Care Education/Training Program; PCP Physician Assistant
DX: S00.12XA Contusion of left eyelid and periocular area, initial encounter (principal); S00.03XA Contusion of scalp, initial encounter; S00.01XA Abrasion of scalp, initial encounter; S80.211A Abrasion, right knee, initial encounter; Z23 Encounter for immunization; I10 Essential (primary) hypertension; F03.90 Unspecified dementia, unspecified severity, without behavioral disturbance, psychotic disturbance, mood disturbance, and anxiety; M17.11 Unilateral primary osteoarthritis, right knee; W01.0XXA Fall on same level from slipping, tripping and stumbling without subsequent striking against object, initial encounter
CPT/HCPCS: 70450; 70486; 72125; 73562; 90471; 90715; 99284